=== PATIENT | female | born 1955 | race Caucasian/White ===

== ENCOUNTER 2021-04-11 13:36 | Emergency (ER) | payer OTHER, SELFPAY ==
--- NOTE | ~2021-04-11 | CT_ITS ---
EXAMINATION: CT lumbar spine wo con DATE: 04/11/2021 18:50 INDICATION: Low back pain. TECHNIQUE: Computed tomography (CT) of the lumbar spine was performed without intravenous contrast. A utomated exposure control and iterative reconstruction technique were employed. The dose-length produ ct was 1166.42 mGy-cm. COMPARISON: None FINDINGS: Bone alignment is normal. Vertebral body heights are normal. There is moderately decreased disc height at L3-L4, severely decreased disc height at L4-L5, and mildly decreased disc at L5-S1. Th ere are endplate osteophytes at all levels. The following disc levels are specifically discussed: L1-L2: The disc does not extend beyond the endplate margin. There is moderate bilateral facet joint o steoarthritis. There is no neural foraminal stenosis. There is no central canal stenosis. L2-L3: The disc is bulging. There is moderate right and mild left facet joint osteoarthritis. There i s mild left neural foraminal stenosis. There is mild central canal stenosis. L3-L4: The disc is bulging. There is mild right and moderate left facet joint osteoarthritis. There i s mild bilateral neural foraminal stenosis. There is mild central canal stenosis. L4-L5: The disc is bulging. There is severe right and moderate left facet joint osteoarthritis. There is mild bilateral neural foraminal stenosis. There is mild central canal stenosis. L5-S1: The disc is bulging. There is severe bilateral facet joint osteoarthritis. There is mild bilat eral neural foraminal stenosis. There is mild central canal stenosis. IMPRESSION: 1. Severe lumbar spondylosis. Reviewed, dictated and finalized at location A.
[2021-04-11 13:42] VITALS: BP 155/87; PULSE 86; RESP 20; TEMP 36.9; O2SAT 99
[2021-04-11 16:49] VITALS: BP 166/80; PULSE 95; RESP 20; TEMP 36.8; O2SAT 99
[2021-04-11 17:56] VITALS: BP 189/93; PULSE 91; RESP 18; O2SAT 97
--- NOTE | 2021-04-11 18:04 | PC.NURSE ---
ÁLVARO Liu at bedside
--- NOTE | 2021-04-11 18:14 | ED.BACK ---
HPI - Back Pain/Injury General Chief Complaint: Back Pain/Injury Stated Complaint: back pain Time Seen by Provider: 04/11/21 17:58 Source: patient and family Mode of arrival: wheelchair Limitations: no limitations History of Present Illness HPI Narrative: This is a 65 year old female that presents to the ER for low back pain worsening over the last couple of weeks. Reports she is currently in physical therapy for her low back and knee. Reports no recent known injury. Reports the pain is sharp with movement, relieved with rest. Sometimes it radiates down her left leg. Her blood pressure was noted to be elevated. She did not take her blood pressure medication today. Denies decreased ROM, numbness, or weakness. Related Data Allergies Allergy/AdvReac Type Severity Reaction Status Date / Time steriods Allergy Itching Uncoded 04/11/21 17:59 Review of Systems Review of Systems: CONSTITUTIONAL: Denies fever, SKIN: Denies rash MUSCULOSKELETAL: Reports back pain, joint pain, and myalgia. NEUROLOGIC: Denies numbness, or weakness. All systems reviewed & are unremarkable except as noted in HPI and below PMFSH Past Medical History Medical History (Updated 04/11/21 @ 19:33 by Alexa Dejesus PA-C) History of hypertension Social History Social History (Updated 04/11/21 @ 18:18 by Alexa Dejesus PA-C) Substance use: never Exam Narrative: GENERAL: Well-appearing, obese, and in no acute distress. HEAD: Normocephalic, atraumatic. EYES: EOMI. CHEST: Clear to auscultation. No respiratory distress. No wheezes rales or rhonchi HEART: Regular rate and rhythm. No murmur heard. Normal peripheral pulses. BACK: No midline spinal tenderness EXTREMITIES: Normal range of motion. No edema. Strength equal in bilateral lower extremities (5/5). Normal DP pulses SKIN: Warm, dry, no rash. NEURO: No focal deficits. Alert and oriented x3. PSYCH: Normal mood and affect Course Vital Signs Vital signs: Vital Signs Temperature 98.5 F 04/11/21 13:42 Pulse Rate 86 04/11/21 13:42 Respiratory Rate 20 04/11/21 13:42 Blood Pressure 155/87 H 04/11/21 13:42 Pulse Oximetry 99 04/11/21 13:42 Temperature 98.2 F 04/11/21 16:49 Pulse Rate 91 04/11/21 17:56 Respiratory Rate 18 04/11/21 17:56 Blood Pressure 189/93 H 04/11/21 17:56 Pulse Oximetry 97 04/11/21 17:56 MDM - Back Pain/Injury MDM Narrative Medical decision making narrative: Patient presents to the emergency department for low back pain over the last couple of weeks. No known injury or trauma. Patient is neurologically intact. CT scan lumbar spine shows severe lumbar spondylosis. Patient and family updated on case findings. Patient instructed to alternate Tylenol and anti-inflammatories as needed for pain. She is to follow-up with her primary care doctor. She was given warnings to return to the ER Blood pressure noted to be elevated. She had not taken her blood pressure medication today, was given this in the ED Imaging Data Radiologist's impression: ITS Impressions Lumbar Spine CT 04/11/21 18:53 IMPRESSION: 1. Severe lumbar spondylosis. Critical Care Time Critical Care Time Critical Care Time: No Discharge Plan Discharge Clinical Impression: Lumbar radiculopathy Patient Disposition: Home, Self-Care Condition: Stable Instructions: Lumbar Radiculopathy (ED) Additional Instructions: Return to the ER if you experience fever, weakness, numbness, bowel/bladder incontinence, or any other symptoms that are concerning to you Rest, use ice/heat, take Tylenol or Toradol as needed for pain. If you take Toradol do not take other anti-inflammatories (Aleve, Ibuprofen, Naproxen, Advil, etc). Prescribed pain medication as needed Follow up with your primary care doctor Prescriptions: New ketorolac 10 mg tablet 10 mg PO Q8H PRN (Reason: pain) 5 Days Qty: 14 RF: 0 Follow-up/Referrals: Lázaro,Elizabeth Castellano APRN [Prim
--- NOTE | 2021-04-11 18:54 | PC.NURSE ---
Called pharmacy requesting losartan
[2021-04-11] MEDS: CYCLOBENZAPRINE HCL 10 MG TABLET PO (18:58)
[2021-04-11] MEDS: KETOROLAC (*BKC) 60 MG/2 ML VIAL IM (18:59)
[2021-04-11] MEDS: LOSARTAN POTASSIUM 25 MG TABLET PO (19:05)
[2021-04-11 19:57] VITALS: BP 187/87; PULSE 84; RESP 14; TEMP 37.2; O2SAT 98
== END 2021-04-11 19:59 | disposition home or self-care (01) ==
PROVIDERS: Emergency Provider Emergency Medicine; PCP Nurse Practitioner Family
DX: M54.16 Radiculopathy, lumbar region (principal); I10 Essential (primary) hypertension; M47.816 Spondylosis without myelopathy or radiculopathy, lumbar region
CPT/HCPCS: 72131; 96372; 99284; A9270; J1885

== ENCOUNTER 2021-05-26 12:00 | Emergency (ER) | payer MEDICARE, MEDICAID, SELFPAY ==
[2021-05-26 12:45] VITALS: BP 157/82; PULSE 98; RESP 14; TEMP 36.6; O2SAT 99
[2021-05-26] MEDS: diazePAM INJ (*CRX) 10 MG/2 ML SYRINGE 5 MG IV PUSH (15:51)
[2021-05-26] MEDS: KETOROLAC 30 MG/ML VIAL (*BKC) IV PUSH (15:51)
--- NOTE | 2021-05-26 17:08 | ED.GENADULT ---
HPI - General Adult General Chief complaint: Abdominal Pain Stated complaint: abd and back pain Time Seen by Provider: 05/26/21 15:02 History of Present Illness HPI narrative: Patient is a 66-year-old female who presents ER with low back pain. Left-sided in the mid lumbar region. No acute injury. Began 5 days ago. No numbness or tingling to lower extremities or reports of saddle anesthesia. No difficulty with urination or defecation. Denies fevers or chills or sweats. Has history of chronic back pain and is currently scheduled to see pain management in August 2021. Has been taking some oxycodone without relief of pain at home. Has also tried cyclobenzaprine without relief. Related Data Allergies Allergy/AdvReac Type Severity Reaction Status Date / Time steriods Allergy Itching Uncoded 04/11/21 17:59 Review of Systems Review of Systems: All systems reviewed & are unremarkable except as noted in HPI and below Constitutional: Constitutional: Denies chills, Denies fever(s) and Denies weakness Gastrointestinal: Gastrointestinal: Denies abdominal pain, Denies nausea and Denies vomiting Genitourinary: Genitourinary: Denies urinary incontinence Musculoskeletal: Musculoskeletal: Reports back pain, Denies myalgias, Denies joint swelling and Reports muscle cramps Neurologic: Denies focal weakness and Denies numbness PMFSH Past Medical History Medical History (Updated 05/26/21 @ 17:37 by Neftaly Mckeon MD) History of hypertension Social History Social History (Updated 04/11/21 @ 18:18 by Alexa Dejesus PA-C) Substance use: never Exam Narrative: GENERAL: Well-appearing, morbidly obese, and in no acute distress. HEAD: Normocephalic, atraumatic. CHEST: Clear to auscultation. No respiratory distress. HEART: Regular rate and rhythm. Normal peripheral pulses. Back: No reproducible midline tenderness of thoracic or lumbar spine. Mild paraspinal muscular tenderness left lumbar region. No swelling or erythema or bruising. EXTREMITIES: Normal range of motion. No edema. SKIN: Warm, dry, no rash. NEURO: Alert and oriented x3. PSYCH: Normal mood and affect. Course Course Emergency Course: Pain improved with Toradol and Valium. Patient able to ambulate. Discharge home with supportive therapy. Vital Signs Vital signs: Vital Signs Temperature 97.9 F 05/26/21 12:45 Pulse Rate 98 05/26/21 12:45 Respiratory Rate 14 05/26/21 12:45 Blood Pressure 157/82 H 05/26/21 12:45 Pulse Oximetry 99 05/26/21 12:45 Temperature 97.9 F 05/26/21 12:45 Pulse Rate 98 05/26/21 12:45 Respiratory Rate 14 05/26/21 12:45 Blood Pressure 157/82 H 05/26/21 12:45 Pulse Oximetry 99 05/26/21 12:45 Medical Decision Making Vital Signs Vital Signs: Vital Signs Temperature 97.9 F 05/26/21 12:45 Pulse Rate 98 05/26/21 12:45 Respiratory Rate 14 05/26/21 12:45 Blood Pressure 157/82 H 05/26/21 12:45 Pulse Oximetry 99 05/26/21 12:45 Temperature 97.9 F 05/26/21 12:45 Pulse Rate 98 05/26/21 12:45 Respiratory Rate 14 05/26/21 12:45 Blood Pressure 157/82 H 05/26/21 12:45 Pulse Oximetry 99 05/26/21 12:45 Discharge Plan Discharge Clinical Impression: Low back strain, Cramp in muscle Patient Disposition: Home, Self-Care Condition: Stable Instructions: Acute Low Back Pain (ED), Muscle Spasm (ED) Additional Instructions: Return to the ER if you have increased pain in your back, you develop lower extremity weakness/numbness/paralysis, you have numbness or tingling in your private parts, or you are unable to control your ability to urinate/stool. Prescriptions: New diazepam [Valium] 5 mg tablet 5 mg PO BID PRN (Reason: muscle spasm) Qty: 10 RF: 0 naproxen 375 mg tablet 375 mg PO BID Qty: 14 RF: 0 No Action ketorolac 10 mg tablet 10 mg PO Q8H PRN (Reason: pain) 5 Days Qty: 14 RF: 0 Follow-up/Referrals: Lázaro,Elizabeth Castellano, OFFICE CASHIER [Primary
--- NOTE | 2021-05-26 17:35 | PC.NURSE ---
Patient stood up at this time and assisted with 1 standby assist ambulation from the bed to the wheelchair. Patient tolerated well. Nothing further to report at this time. Will continue to monitor.
== END 2021-05-26 18:07 | disposition home or self-care (01) ==
PROVIDERS: Emergency Provider Emergency Medicine; PCP Nurse Practitioner Family
DX: R25.2 Cramp and spasm (principal); S39.012A Strain of muscle, fascia and tendon of lower back, initial encounter; I10 Essential (primary) hypertension; X58.XXXA Exposure to other specified factors, initial encounter
CPT/HCPCS: 96374; 96375; 99284; J1885; J3360